=== PATIENT | male | born 1955 | race Caucasian/White ===

== ENCOUNTER 2022-02-25 06:37 | Day surgery (SDC) | payer MEDICARE ==
[2022-02-25] MEDS ORDERED: Lidocaine 1% PF 5 ML VIAL ONE (06:40)
[2022-02-25] MEDS ORDERED: Heparin 10,000 UNITS/ 10 ML VIAL ONE (06:40)
[2022-02-25] MEDS ORDERED: Verapamil 5 MG/2 ML VIAL ONE (06:40)
[2022-02-25] MEDS ORDERED: Nitroglycerin 100MG/250ML BOT 0 ML ONE ×2 (06:41)
[2022-02-25 07:14] LABS: #Basophils 0.1 thou/uL (0.0-0.2); #Eosinphils 0.2 thou/uL (0.0-0.7); #Lymphocytes 1.1 thou/uL (1.20-3.40); #Monocytes 0.7 thou/uL (0.11-0.59); #Neutrophils 6.6 thou/uL (1.40-6.50); %Basophils 0.6 % (0.0-1.0); %Lymphocytes 12.4 % (21.0-51.0); %Monocytes 7.7 % (0.0-10.0); %Neutrophils 77.3 % (42.0-75.0); Hemoglobin 16.4 g/dL (14.0-18.0); Mean Corpuscular Hemoglobin 31.3 pg (27.0-31.0); Mean Corpuscular Volume 92.1 fl (78.0-98.0); Mean Platelet Volume 7.5 fL (7.4-10.4); Platelet Count 205 10x3/uL (130-400); RBC Distribution Width 12.3 % (11.5-14.5); Red Blood Cell (RBC) Count 5.22 mill/uL (4.70-6.10); White Blood Cell (WBC) Count 8.5 10x3/uL (4.8-10.8)
[2022-02-25] MEDS ORDERED: Lidocaine 1% (PF) 30 ML VIAL ONE (07:16)
[2022-02-25] MEDS ORDERED: FENTANYL 50 MCG/ML 1 ML VIAL ONE (07:17)
[2022-02-25] MEDS ORDERED: Midazolam HCl 2 mg/2 ml Vial ONE ×2 (07:17→08:35)
[2022-02-25 07:47] LABS: Anion Gap 13 mmol/L (10-20); BUN (Urea Nitrogen) 13 mg/dL (8.4-25.7); Calc. Creatinine Clearance 0 mL/min (70-130); Calcium 9.7 mg/dL (7.8-10.44); Carbon Dioxide 24 mmol/L (23-31); Chloride 102 mmol/L (98-107); Estimated GFR 68; Glucose 236 mg/dL (80-115); Potassium 4.4 mmol/L (3.5-5.1); Sodium 135 mmol/L (136-145)
== END 2022-02-25 13:15 | disposition home or self-care (01) ==
LOC: SDC 06:37
PROVIDERS: ATTEND Internal Medicine Cardiovascular Disease
PROC: 4A023N7 Measurement of Cardiac Sampling and Pressure, Left Heart, Percutaneous Approach (ICD-10-PCS; principal; 2022-02-25)
PROC: B2111ZZ Fluoroscopy of Multiple Coronary Arteries using Low Osmolar Contrast (ICD-10-PCS; 2022-02-25)
DX: T82.855A Stenosis of coronary artery stent, initial encounter (principal); I25.10 Atherosclerotic heart disease of native coronary artery without angina pectoris; I25.82 Chronic total occlusion of coronary artery; K21.9 Gastro-esophageal reflux disease without esophagitis; I25.2 Old myocardial infarction; M10.9 Gout, unspecified; I10 Essential (primary) hypertension; E78.2 Mixed hyperlipidemia; E11.51 Type 2 diabetes mellitus with diabetic peripheral angiopathy without gangrene; M15.9 Polyosteoarthritis, unspecified; Z79.02 Long term (current) use of antithrombotics/antiplatelets; Z79.4 Long term (current) use of insulin; Z79.84 Long term (current) use of oral hypoglycemic drugs; Z79.899 Other long term (current) drug therapy; Y71.3 Surgical instruments, materials and cardiovascular devices (including sutures) associated with adverse incidents
CPT/HCPCS: 80048; 85025; 93460; 99152; 99153; C1769; J1644; J2001; J2250; J3010

== ENCOUNTER 2022-02-27 09:45 | Inpatient (IN) | payer MEDICARE ==
[2022-02-27 13:02] LABS: Hemoglobin 14.9 g/dL (13.5-17.5); Mean Corpuscular HGB CONC 34.7 g/dL (32.0-36.0); Mean Corpuscular Hemoglobin 30.9 pg (27.0-33.0); Mean Corpuscular Volume 89.2 fl (81.2-95.1); Mean Platelet Volume 10.3 fl (7.4-10.4); Platelet Count 208 10x3/uL (150-450); Red Blood Cell (RBC) Count 4.82 10x6/uL (4.32-5.72); White Blood Cell (WBC) Count 7.1 10x3/uL (3.5-10.5)
[2022-02-27 13:23] LABS: Anion Gap 16 mmol/L (10-20); BUN (Urea Nitrogen) 22 mg/dL (8.4-25.7); Calc. Creatinine Clearance 0 mL/min (70-130); Carbon Dioxide 23 mmol/L (23-31); Chloride 105 mmol/L (98-107); Estimated GFR 54; Glucose 269 mg/dL (80-115); Potassium 4.6 mmol/L (3.5-5.1); Sodium 139 mmol/L (136-145)
[2022-03-04 10:21] VITALS: BMI 33.5
[2022-03-05] MEDS ORDERED: Albumin 5% 500 ML ONE ×2 (06:14→12:45)
[2022-03-05] MEDS ORDERED: Dexamethasone 4 mg/ml Vial ONE (06:14)
[2022-03-05] MEDS ORDERED: Bupivacaine HCl 0.5%/Epinephrine 1:200,000/PF 30 ml Vial ONE (06:14)
[2022-03-05] MEDS ORDERED: Heparin 10,000 UNITS/1 ML VIAL 30,000 UNITS in Sodium Chloride 0.9% 1,000 ML FS SCH (06:45)
[2022-03-05] MEDS ORDERED: Sodium Chloride 0.9% 100 ML ONE (07:12)
[2022-03-05] MEDS ORDERED: CEFAZOLIN 2 GM VIAL ONE (07:12)
[2022-03-05] MEDS ORDERED: Calcium Chloride 1 GM/10 ML Abboject SYRINGE ONE (07:18)
[2022-03-05] MEDS ORDERED: Protamine Sulfate 250 MG/25 ML VIAL ONE ×2 (07:18→13:11)
[2022-03-05] MEDS ORDERED: Heparin 30,000 units/30 ml VIAL ONE ×2 (07:18→13:11)
[2022-03-05] MEDS ORDERED: Thrombin 5000 UNITS/5 ML VIAL ONE (07:18)
[2022-03-05] MEDS ORDERED: Phenylephrine 10 MG/ML VIAL ONE (07:18)
[2022-03-05] MEDS ORDERED: Vecuronium 10 MG VIAL ONE (07:18)
[2022-03-05] MEDS ORDERED: ePHEDrine 50 MG/ML VIAL ONE (07:18)
[2022-03-05] MEDS ORDERED: Vancomycin 1 GM VIAL ONE ×2 (07:18→13:11)
[2022-03-05] MEDS ORDERED: Papaverine 60 MG/2 ML VIAL ONE (07:18)
[2022-03-05] MEDS ORDERED: Rocuronium Bromide 10 MG/ML (10ML VIAL) ONE ×2 (07:18→13:11)
[2022-03-05] MEDS ORDERED: Lidocaine 2% PF 100 mg/5 ml Syringe ONE (07:18)
[2022-03-05] MEDS ORDERED: Sodium Bicarb 50 MEQ/50 ML Abboject 8.4% SYRINGE ONE (07:18)
[2022-03-05] MEDS ORDERED: Norepinephrine 4 MG/4 ML VIAL ONE (07:18)
[2022-03-05] MEDS ORDERED: Cardioplegic Soln 1,000 ML BAG ONE (07:18)
[2022-03-05] MEDS ORDERED: Heparin 5,000 UNITS/ML VIAL ONE (07:18)
[2022-03-05] MEDS ORDERED: PROPOFOL 200 MG/20 ML VIAL ONE (07:18)
[2022-03-05] MEDS ORDERED: Aminocaproic Acid 5 GM/20 ML VIAL ONE (07:18)
[2022-03-05] MEDS ORDERED: Magnesium Sulfate 1 GM/2 ML VIAL ONE (07:18)
[2022-03-05] MEDS ORDERED: Mannitol 12.5 GM/50 ML ONE (07:18)
[2022-03-05] MEDS ORDERED: fentaNYL PF 100 MCG/2 ML SYRINGE ONE (07:33)
[2022-03-05 07:47] LABS: SARS-CoV-2 NAA Rapid Test Not Detected (NotDetected)
[2022-03-05] MEDS ORDERED: PHENYLEPHRINE-NS 100 MCG/ML 10 ML SYRINGE ONE ×2 (08:10→09:15)
[2022-03-05] MEDS ORDERED: Insulin Regular 300 UNITS/3 ML VIAL ONE (08:10)
[2022-03-05] MEDS ORDERED: Midazolam HCl 2 mg/2 ml Vial ONE ×2 (10:14→13:16)
[2022-03-05] MEDS ORDERED: FENTANYL 50 MCG/ML 1 ML VIAL SLOW IVP PRN (10:46)
[2022-03-05] MEDS ORDERED: Post-Op Insulin Drip Protocol IVPB ONE (10:46)
[2022-03-05] MEDS ORDERED: NOREPINEPHRINE 8 MG/250 ML-D5W 250 ML IVPB PRN (10:46)
[2022-03-05] MEDS ORDERED: Bisacodyl 10 MG SUPP PR PRN (10:46)
[2022-03-05] MEDS ORDERED: Hetastarch 6% 500 ML 500 ML IVPB PRN (10:46)
[2022-03-05] MEDS ORDERED: Morphine 4 MG/ML VIAL SLOW IVP PRN (10:46)
[2022-03-05] MEDS ORDERED: Mag-Al 1200 mg/1200 mg/30 ML UDCUP PO PRN (10:46)
[2022-03-05] MEDS ORDERED: Acetaminophen 325 MG TAB PO PRN (10:46)
[2022-03-05] MEDS ORDERED: Lactated Ringer's 1,000 ML IV SCH (10:46)
[2022-03-05] MEDS ORDERED: Potassium Chloride 20 MEQ/100 ML PREMIX BAG IVPB PRN (10:46)
[2022-03-05] MEDS ORDERED: traMADol HCl 50 MG TAB PO PRN (10:46)
[2022-03-05] MEDS ORDERED: Bisacodyl 5 MG TAB PO PRN (10:46)
[2022-03-05] MEDS ORDERED: Guaifenesin DM 100-10/5 ML UDCUP PO PRN (10:46)
[2022-03-05] MEDS ORDERED: Rocuronium Bromide 50 MG/5 ML VIAL ONE (11:01)
[2022-03-05 11:16] LABS: Base Excess (BEa) -6.4 mEq/L (-2.0 to +3.0); Calcium, Ionized (arterial) 1.13 mmol/L (1.12-1.30); Carboxyhemoglobin (COHb) 1.3 gm% (0.0-3.0); Hemoglobin (Hb) 13.5 g/dL (14.0-18.0); O2 Tension (PaO2), arterial 109.9 mmHg (> 80.0); Potassium - ABG Lab 4.53 mmol/L (3.70-5.30); Puncture Site Arterial Line; pH, Arterial 7.29 (7.35-7.45)
[2022-03-05] MEDS ORDERED: Insulin Regular 300 UNITS/3 ML VIAL SC PRN (11:30)
[2022-03-05] MEDS ORDERED: Dextrose 5% in Water 1,000 ML IV PRN (11:30)
[2022-03-05] MEDS ORDERED: Dextrose 50% Abboject 50 ML SYRINGE SLOW IVP PRN (11:30)
[2022-03-05 11:32] LABS: #Eosinphils 0.2 thou/uL (0.0-0.7); #Lymphocytes 1.3 thou/uL (1.20-3.40); #Monocytes 1.5 thou/uL (0.11-0.59); #Neutrophils 13.6 thou/uL (1.40-6.50); %Basophils 0.1 % (0.0-1.0); %Eosinophils 0.9 % (0.0-10.0); %Lymphocytes 7.8 % (21.0-51.0); %Monocytes 9.3 % (0.0-10.0); %Neutrophils 81.9 % (42.0-75.0); Hemoglobin 13.2 g/dL (14.0-18.0); Mean Corpuscular Hemoglobin 31.7 pg (27.0-31.0); Mean Corpuscular Volume 93.2 fl (78.0-98.0); Mean Platelet Volume 7.7 fL (7.4-10.4); Platelet Count 162 10x3/uL (130-400); RBC Distribution Width 12.5 % (11.5-14.5); Red Blood Cell (RBC) Count 4.17 mill/uL (4.70-6.10); White Blood Cell (WBC) Count 16.6 10x3/uL (4.8-10.8)
[2022-03-05 11:47] LABS: INR-International Normal Ratio 1.2; PTT 30.3 sec (22.9-36.1)
[2022-03-05] MEDS: niCARdipine 25 MG in Sodium Chloride 0.9% 250 ML 250 ML IVPB PRN ×2 (11:48→20:58)
[2022-03-05] MEDS: HUMULIN R 100 UNITS in Sodium Chloride 0.9% 100 ML IVPB SCH ×2 (11:49→23:12)
[2022-03-05 12:19] LABS: Anion Gap 13 mmol/L (10-20); BUN (Urea Nitrogen) 17 mg/dL (8.4-25.7); Calc. Creatinine Clearance 120 mL/min (70-130); Calcium 7.7 mg/dL (7.8-10.44); Carbon Dioxide 19 mmol/L (23-31); Chloride 113 mmol/L (98-107); Estimated GFR 76; Glucose 179 mg/dL (80-115); Potassium 4.5 mmol/L (3.5-5.1); Sodium 140 mmol/L (136-145)
[2022-03-05] MEDS ORDERED: Propofol 1,000 MG/100 ML VIAL IV ONE (12:43)
[2022-03-05] MEDS: FENTANYL 50 MCG/ML 1 ML VIAL SLOW IVP PRN ×4 (12:45→20:16)
[2022-03-05 12:47] LABS: Actual Bicarbonate (HCO3a) 20.2 mEq/L (22-28); Base Excess (BEa) -4.9 mEq/L (-2.0 to +3.0); CO2 Tension 37.6 mmHg (35.0-45.0); Calcium, Ionized (arterial) 1.11 mmol/L (1.12-1.30); Carboxyhemoglobin (COHb) 1.3 gm% (0.0-3.0); Hemoglobin (Hb) 13.5 g/dL (14.0-18.0); O2 Tension (PaO2), arterial 107.8 mmHg (> 80.0); pH, Arterial 7.35 (7.35-7.45)
[2022-03-05 12:52] LABS: Puncture Site Arterial Line
[2022-03-05] MEDS: Ketorolac Tromethamine 30 MG/ML VIAL IVP SCH ×3 (15:00→23:11)
[2022-03-05 16:00] LABS: #Eosinphils 0.1 thou/uL (0.0-0.7); #Lymphocytes 0.6 thou/uL (1.20-3.40); #Monocytes 1.1 thou/uL (0.11-0.59); #Neutrophils 13.9 thou/uL (1.40-6.50); %Basophils 0.1 % (0.0-1.0); %Eosinophils 0.5 % (0.0-10.0); %Monocytes 6.9 % (0.0-10.0); %Neutrophils 88.5 % (42.0-75.0); Hemoglobin 12.2 g/dL (14.0-18.0); Mean Corpuscular HGB CONC 33.7 g/dL (32.0-36.0); Mean Corpuscular Hemoglobin 31.4 pg (27.0-31.0); Mean Corpuscular Volume 93.3 fl (78.0-98.0); Mean Platelet Volume 7.3 fL (7.4-10.4); Platelet Count 181 10x3/uL (130-400); RBC Distribution Width 12.4 % (11.5-14.5); Red Blood Cell (RBC) Count 3.87 mill/uL (4.70-6.10); White Blood Cell (WBC) Count 15.8 10x3/uL (4.8-10.8)
[2022-03-05 16:16] LABS: Anion Gap 11 mmol/L (10-20); BUN (Urea Nitrogen) 16 mg/dL (8.4-25.7); Calc. Creatinine Clearance 145 mL/min (70-130); Calcium 7.6 mg/dL (7.8-10.44); Carbon Dioxide 19 mmol/L (23-31); Chloride 116 mmol/L (98-107); Estimated GFR 95; Glucose 172 mg/dL (80-115); Sodium 142 mmol/L (136-145)
[2022-03-05] MEDS: CEFAZOLIN 3 GM, Admixture Fee 1 EACH in Sodium Chloride 0.9% 100 ML IVPB SCH ×2 (16:26→23:10)
[2022-03-05 16:38] LABS: Base Excess (BEa) -7.6 mEq/L (-2.0 to +3.0); CO2 Tension 32.1 mmHg (35.0-45.0); Carboxyhemoglobin (COHb) 1.3 gm% (0.0-3.0); Hemoglobin (Hb) 12.6 g/dL (14.0-18.0); O2 Tension (PaO2), arterial 91.8 mmHg (> 80.0); Potassium - ABG Lab 3.97 mmol/L (3.70-5.30); pH, Arterial 7.34 (7.35-7.45)
[2022-03-05 16:39] LABS: ALV-art Gradient 153.275 mmHg (0-20); Puncture Site Arterial Line
[2022-03-05] MEDS ORDERED: Propofol BOLUS 1,000 MG/100 ML VIAL IV PRN (16:45)
[2022-03-05] MEDS ORDERED: Propofol 1,000 MG/100 ML VIAL IV PRN (16:45)
[2022-03-05] MEDS ORDERED: Sodium Bicarb 50 MEQ/50 ML VIAL ONE (17:18)
[2022-03-05] MEDS ORDERED: Sodium Bicarb 50 MEQ/50 ML VIAL IVP SCH (17:30)
[2022-03-05 17:45] LABS: Potassium 3.8 mmol/L (3.5-5.1)
[2022-03-05] MEDS: hydrALAZINE 20 MG/ML VIAL SLOW IVP PRN (18:01)
[2022-03-05] MEDS: Ondansetron PF 4 MG/2 ML Vial IVP PRN ×2 (18:01→23:23)
[2022-03-05] MEDS ORDERED: Famotidine/PF 20 mg/2ml Vial SLOW IVP SCH (21:00)
[2022-03-05] MEDS ORDERED: Atorvastatin Calcium 20 MG TAB PO SCH (21:00)
[2022-03-05] MEDS ORDERED: Simethicone Chewable 80 MG TAB PO SCH (23:45)
[2022-03-06] MEDS: niCARdipine 25 MG in Sodium Chloride 0.9% 250 ML 250 ML IVPB PRN ×3 (00:03→04:48)
[2022-03-06] MEDS: traMADol HCl 50 MG TAB PO PRN ×3 (02:01→17:09)
[2022-03-06] MEDS: FENTANYL 50 MCG/ML 1 ML VIAL SLOW IVP PRN ×3 (03:43→20:24)
[2022-03-06] MEDS: hydrALAZINE 20 MG/ML VIAL SLOW IVP PRN ×2 (04:48→18:04)
[2022-03-06 04:52] LABS: Anion Gap 14 mmol/L (10-20); BUN (Urea Nitrogen) 15 mg/dL (8.4-25.7); Calc. Creatinine Clearance 134 mL/min (70-130); Calcium 7.8 mg/dL (7.8-10.44); Carbon Dioxide 20 mmol/L (23-31); Chloride 114 mmol/L (98-107); Estimated GFR 87; Glucose 132 mg/dL (80-115); Potassium 3.9 mmol/L (3.5-5.1); Sodium 144 mmol/L (136-145)
[2022-03-06 05:10] LABS: #Lymphocytes 0.6 thou/uL (1.20-3.40); #Monocytes 1.5 thou/uL (0.11-0.59); #Neutrophils 10.6 thou/uL (1.40-6.50); %Eosinophils 0.1 % (0.0-10.0); %Lymphocytes 4.6 % (21.0-51.0); %Monocytes 11.8 % (0.0-10.0); %Neutrophils 83.5 % (42.0-75.0); Hemoglobin 11.3 g/dL (14.0-18.0); Mean Corpuscular HGB CONC 33.5 g/dL (32.0-36.0); Mean Corpuscular Hemoglobin 31.4 pg (27.0-31.0); Mean Corpuscular Volume 93.7 fl (78.0-98.0); Mean Platelet Volume 8.1 fL (7.4-10.4); Platelet Count 170 10x3/uL (130-400); RBC Distribution Width 12.8 % (11.5-14.5); Red Blood Cell (RBC) Count 3.61 mill/uL (4.70-6.10); White Blood Cell (WBC) Count 12.7 10x3/uL (4.8-10.8)
[2022-03-06] MEDS: Ondansetron PF 4 MG/2 ML Vial IVP PRN (05:24)
[2022-03-06] MEDS: Ketorolac Tromethamine 30 MG/ML VIAL IVP SCH ×4 (05:24→23:50)
[2022-03-06] MEDS ORDERED: Dextrose 50% Abboject 50 ML SYRINGE SLOW IVP PRN (06:18)
[2022-03-06] MEDS ORDERED: Dextrose 5% in Water 1,000 ML IV PRN (06:18)
[2022-03-06] MEDS ORDERED: Furosemide 40 MG TAB PO SCH (07:30)
[2022-03-06] MEDS ORDERED: Potassium Chloride 10 MEQ TAB PO SCH (08:00)
[2022-03-06] MEDS: Magnesium 2 GM/50 ML(in water) 2 GM in Premix Bag 1 BAG IVPB SCH (08:44)
[2022-03-06] MEDS: Empagliflozin 10 MG TAB PO SCH (08:45)
[2022-03-06] MEDS: Colchicine 0.6 MG TAB PO SCH ×2 (08:45→20:26)
[2022-03-06] MEDS: Aspirin 325 MG TAB PO SCH (08:45)
[2022-03-06] MEDS: Allopurinol 300 MG TAB PO SCH (08:45)
[2022-03-06] MEDS: Metoprolol Tartrate 25 MG TAB PO SCH ×2 (08:45→20:26)
[2022-03-06] MEDS: Fenofibrate Nanocrystallized 145 MG TAB PO SCH (08:45)
[2022-03-06] MEDS: CEFAZOLIN 3 GM, Admixture Fee 1 EACH in Sodium Chloride 0.9% 100 ML IVPB SCH (09:53)
[2022-03-06] MEDS ORDERED: Insulin Glargine 30 UNITS/0.3 ML VIAL SC PRN (11:16)
[2022-03-06] MEDS: HumaLOG 300 UNITS/3 ML VIAL SC PRN ×3 (11:35→20:36)
[2022-03-06] MEDS: Atorvastatin Calcium 20 MG TAB PO SCH (20:26)
[2022-03-07] MEDS: Ketorolac Tromethamine 30 MG/ML VIAL IVP SCH ×4 (05:55→23:38)
[2022-03-07] MEDS: HumaLOG 300 UNITS/3 ML VIAL SC PRN ×2 (05:58→16:15)
[2022-03-07] MEDS ORDERED: Mag-Al 1200 mg/1200 mg/30 ML UDCUP PO PRN (07:12)
[2022-03-07] MEDS ORDERED: diphenhydrAMINE 25 MG CAP PO PRN (07:12)
[2022-03-07] MEDS ORDERED: Bisacodyl 10 MG SUPP PR PRN (07:12)
[2022-03-07] MEDS ORDERED: Nitroglycerin 0.4 MG TAB (25 Tab Bottle) SL PRN (07:12)
[2022-03-07] MEDS ORDERED: Zolpidem Tartrate 5 MG TAB PO PRN (07:12)
[2022-03-07] MEDS ORDERED: Milk Of Magnesia 30 ML UDCUP PO PRN (07:12)
[2022-03-07] MEDS ORDERED: Guaifenesin DM 100-10/5 ML UDCUP PO PRN (07:12)
[2022-03-07] MEDS ORDERED: Mineral Oil ENEMA PR PRN (07:12)
[2022-03-07] MEDS: FENTANYL 50 MCG/ML 1 ML VIAL SLOW IVP PRN (08:18)
[2022-03-07] MEDS: Metoprolol Tartrate 25 MG TAB PO SCH ×2 (08:30→21:25)
[2022-03-07] MEDS: Magnesium 2 GM/50 ML(in water) 2 GM in Premix Bag 1 BAG IVPB SCH (08:32)
[2022-03-07] MEDS: Potassium Chloride 10 MEQ TAB PO SCH ×2 (08:33→16:16)
[2022-03-07] MEDS: Furosemide 40 MG TAB PO SCH ×2 (08:34→15:19)
[2022-03-07] MEDS: Aspirin 325 MG TAB PO SCH (08:34)
[2022-03-07] MEDS: Colchicine 0.6 MG TAB PO SCH ×2 (08:54→21:25)
[2022-03-07] MEDS: Aspirin 325 mg Enteric Coated Tablet PO SCH (08:55)
[2022-03-07] MEDS ORDERED: Metoprolol Tartrate 5 MG/5 ML VIAL ONE (09:08)
[2022-03-07 09:22] LABS: #Lymphocytes 1.4 thou/uL (1.20-3.40); #Neutrophils 10.3 thou/uL (1.40-6.50); %Basophils 0.2 % (0.0-1.0); %Eosinophils 0.3 % (0.0-10.0); %Monocytes 14.6 % (0.0-10.0); %Neutrophils 74.9 % (42.0-75.0); Hemoglobin 10.8 g/dL (14.0-18.0); Mean Corpuscular HGB CONC 33.1 g/dL (32.0-36.0); Mean Corpuscular Volume 93.6 fl (78.0-98.0); Mean Platelet Volume 7.7 fL (7.4-10.4); Platelet Count 169 10x3/uL (130-400); RBC Distribution Width 12.7 % (11.5-14.5); Red Blood Cell (RBC) Count 3.49 mill/uL (4.70-6.10); White Blood Cell (WBC) Count 13.8 10x3/uL (4.8-10.8)
[2022-03-07] MEDS ORDERED: Digoxin 0.5 MG/2 ML AMP ONE (09:28)
[2022-03-07] MEDS ORDERED: Amiodarone 150 MG/3 ML VIAL IVP SCH (09:45)
[2022-03-07] MEDS ORDERED: Metoprolol Tartrate 5 MG/5 ML VIAL IVP SCH (09:45)
[2022-03-07] MEDS ORDERED: Digoxin 0.5 MG/2 ML AMP SLOW IVP SCH (09:45)
[2022-03-07 09:47] LABS: ALT (SGPT) 15 U/L (8-55); AST (SGOT) 20 U/L (5-34); Albumin 3.7 g/dL (3.4-4.8); Alkaline Phosphatase 31 U/L (40-110); Anion Gap 15 mmol/L (10-20); BUN (Urea Nitrogen) 24 mg/dL (8.4-25.7); Bilirubin, Total 1.3 mg/dL (0.2-1.2); Calc. Creatinine Clearance 122 mL/min (70-130); Calcium 8.6 mg/dL (7.8-10.44); Carbon Dioxide 21 mmol/L (23-31); Chloride 104 mmol/L (98-107); Estimated GFR 75; Globulin 2.4 g/dL (2.4-3.5); Glucose 222 mg/dL (80-115); Magnesium 2.7 mg/dL (1.6-2.6); Protein, Total 6.1 g/dL (5.8-8.1); Sodium 136 mmol/L (136-145)
[2022-03-07] MEDS: Allopurinol 300 MG TAB PO SCH (10:03)
[2022-03-07] MEDS: Fenofibrate Nanocrystallized 145 MG TAB PO SCH (10:03)
[2022-03-07] MEDS ORDERED: Amiodarone 450 MG, Admixture Fee 1 EACH in Dextrose 5% in Water 250 ML IVPB SCH (10:15)
[2022-03-07] MEDS: Empagliflozin 25 MG TAB PO SCH (10:58)
[2022-03-07] MEDS: hydrALAZINE 20 MG/ML VIAL SLOW IVP PRN (16:16)
[2022-03-07] MEDS: Bisacodyl 5 MG TAB PO PRN (16:30)
[2022-03-07] MEDS: Ondansetron PF 4 MG/2 ML Vial IVP PRN (18:09)
[2022-03-07] MEDS: traMADol HCl 50 MG TAB PO PRN (21:24)
[2022-03-07] MEDS: Amlodipine 5 MG TAB PO SCH (21:25)
[2022-03-07] MEDS: Atorvastatin Calcium 20 MG TAB PO SCH (21:25)
[2022-03-07] MEDS: Insulin Regular 300 UNITS/3 ML VIAL SC PRN (22:00)
[2022-03-08] MEDS: Insulin Regular 300 UNITS/3 ML VIAL SC PRN ×3 (01:18→12:25)
[2022-03-08] MEDS: traMADol HCl 50 MG TAB PO PRN ×3 (01:19→23:14)
[2022-03-08] MEDS: hydrALAZINE 20 MG/ML VIAL SLOW IVP PRN (04:06)
[2022-03-08] MEDS: Ketorolac Tromethamine 30 MG/ML VIAL IVP SCH ×2 (05:24→12:18)
[2022-03-08] MEDS: Furosemide 40 MG TAB PO SCH ×2 (10:39→15:16)
[2022-03-08] MEDS: Metoprolol Tartrate 25 MG TAB PO SCH ×2 (10:39→20:12)
[2022-03-08] MEDS: Fenofibrate Nanocrystallized 145 MG TAB PO SCH (10:39)
[2022-03-08] MEDS: Colchicine 0.6 MG TAB PO SCH ×2 (10:40→20:12)
[2022-03-08] MEDS: Potassium Chloride 10 MEQ TAB PO SCH ×2 (10:40→17:32)
[2022-03-08] MEDS: Aspirin 325 mg Enteric Coated Tablet PO SCH (10:40)
[2022-03-08] MEDS: Empagliflozin 10 MG TAB PO SCH (10:40)
[2022-03-08] MEDS: Allopurinol 300 MG TAB PO SCH (10:40)
[2022-03-08] MEDS: Aspirin 325 MG TAB PO SCH (10:41)
[2022-03-08] MEDS ORDERED: Amiodarone 200 MG TAB PO SCH ×2 (14:45→21:00)
[2022-03-08] MEDS ORDERED: Digoxin 0.5 MG/2 ML AMP SLOW IVP PRN (19:36)
[2022-03-08] MEDS ORDERED: Amiodarone 150 MG, Admixture Fee 1 EACH in Dextrose 5% in Water 100 ML IVPB SCH (19:45)
[2022-03-08] MEDS ORDERED: FLU VACC QS2022-23(65YR UP)/PF 240 MCG/0.7 ML SYRINGE IM ONE (20:00)
[2022-03-08] MEDS: Amiodarone 450 MG, Admixture Fee 1 EACH in Dextrose 5% in Water 250 ML IVPB SCH (20:06)
[2022-03-08] MEDS: Amlodipine 5 MG TAB PO SCH (20:12)
[2022-03-08] MEDS: Atorvastatin Calcium 20 MG TAB PO SCH (20:14)
[2022-03-08] MEDS ORDERED: Diltiazem 125 MG in Sodium Chloride 0.9% 100 ML IVPB SCH (21:45)
[2022-03-08] MEDS ORDERED: Digoxin 0.5 MG/2 ML AMP SLOW IVP SCH (21:45)
[2022-03-09] MEDS ORDERED: Digoxin 0.5 MG/2 ML AMP SLOW IVP SCH (01:00)
[2022-03-09 04:42] LABS: Digoxin 1.75 ng/mL (0.8-2.0)
[2022-03-09 04:44] LABS: Anion Gap 16 mmol/L (10-20); BUN (Urea Nitrogen) 20 mg/dL (8.4-25.7); Calc. Creatinine Clearance 137 mL/min (70-130); Calcium 8.9 mg/dL (7.8-10.44); Carbon Dioxide 24 mmol/L (23-31); Chloride 101 mmol/L (98-107); Estimated GFR 90; Glucose 157 mg/dL (80-115); Sodium 137 mmol/L (136-145)
[2022-03-09] MEDS: Insulin Regular 300 UNITS/3 ML VIAL SC PRN (06:07)
[2022-03-09] MEDS: Amiodarone 450 MG, Admixture Fee 1 EACH in Dextrose 5% in Water 250 ML IVPB SCH ×2 (06:37→21:12)
[2022-03-09] MEDS: Aspirin 325 mg Enteric Coated Tablet PO SCH (09:41)
[2022-03-09] MEDS: Fenofibrate Nanocrystallized 145 MG TAB PO SCH (09:41)
[2022-03-09] MEDS: Furosemide 40 MG TAB PO SCH ×2 (09:41→14:47)
[2022-03-09] MEDS: Metoprolol Tartrate 25 MG TAB PO SCH ×2 (09:42→21:08)
[2022-03-09] MEDS: Allopurinol 300 MG TAB PO SCH (09:42)
[2022-03-09] MEDS: Colchicine 0.6 MG TAB PO SCH ×2 (09:42→21:08)
[2022-03-09] MEDS: Empagliflozin 25 MG TAB PO SCH (09:43)
[2022-03-09] MEDS: Potassium Chloride 10 MEQ TAB PO SCH ×2 (09:43→17:46)
[2022-03-09] MEDS: HumaLOG 300 UNITS/3 ML VIAL SC PRN (17:46)
[2022-03-09] MEDS: traMADol HCl 50 MG TAB PO PRN (19:20)
[2022-03-09] MEDS: Amlodipine 5 MG TAB PO SCH (21:08)
[2022-03-09] MEDS: Atorvastatin Calcium 20 MG TAB PO SCH (21:08)
[2022-03-10] MEDS: Diltiazem 125 MG in Sodium Chloride 0.9% 100 ML IVPB SCH (01:02)
[2022-03-10] MEDS: HumaLOG 300 UNITS/3 ML VIAL SC PRN ×3 (05:40→22:06)
[2022-03-10] MEDS: Digoxin 0.125 MG TAB PO SCH (09:26)
[2022-03-10] MEDS: Allopurinol 300 MG TAB PO SCH (09:26)
[2022-03-10] MEDS: Furosemide 40 MG TAB PO SCH ×2 (09:27→15:41)
[2022-03-10] MEDS: Potassium Chloride 10 MEQ TAB PO SCH ×2 (09:27→18:34)
[2022-03-10] MEDS: Empagliflozin 10 MG TAB PO SCH (09:27)
[2022-03-10] MEDS: Metoprolol Tartrate 25 MG TAB PO SCH ×2 (09:27→21:59)
[2022-03-10] MEDS: Fenofibrate Nanocrystallized 145 MG TAB PO SCH (09:28)
[2022-03-10] MEDS: Aspirin 325 mg Enteric Coated Tablet PO SCH (09:28)
[2022-03-10] MEDS: Colchicine 0.6 MG TAB PO SCH ×2 (09:28→21:58)
[2022-03-10] MEDS: Atorvastatin Calcium 20 MG TAB PO SCH (21:57)
[2022-03-10] MEDS: Amlodipine 5 MG TAB PO SCH (21:59)
[2022-03-11] MEDS: Amiodarone 450 MG, Admixture Fee 1 EACH in Dextrose 5% in Water 250 ML IVPB SCH ×2 (01:38→19:15)
[2022-03-11] MEDS: Diltiazem 125 MG in Sodium Chloride 0.9% 100 ML IVPB SCH ×2 (01:38→15:23)
[2022-03-11 05:33] LABS: Digoxin 0.64 ng/mL (0.8-2.0)
[2022-03-11] MEDS: Allopurinol 300 MG TAB PO SCH (10:20)
[2022-03-11] MEDS: Empagliflozin 25 MG TAB PO SCH (10:20)
[2022-03-11] MEDS: Metoprolol Tartrate 25 MG TAB PO SCH ×2 (10:21→20:50)
[2022-03-11] MEDS: Furosemide 40 MG TAB PO SCH ×2 (10:21→13:38)
[2022-03-11] MEDS: Potassium Chloride 10 MEQ TAB PO SCH ×2 (10:21→17:13)
[2022-03-11] MEDS: Aspirin 325 mg Enteric Coated Tablet PO SCH (10:21)
[2022-03-11] MEDS: Fenofibrate Nanocrystallized 145 MG TAB PO SCH (10:22)
[2022-03-11] MEDS: Digoxin 0.125 MG TAB PO SCH (10:22)
[2022-03-11] MEDS: Colchicine 0.6 MG TAB PO SCH ×2 (10:22→20:50)
[2022-03-11] MEDS: HumaLOG 300 UNITS/3 ML VIAL SC PRN ×2 (13:39→17:24)
[2022-03-11] MEDS: Bisacodyl 5 MG TAB PO PRN (13:43)
[2022-03-11] MEDS: Amlodipine 5 MG TAB PO SCH (20:49)
[2022-03-11] MEDS: Enoxaparin Sodium 40 MG/0.4 ML SYRINGE SC SCH (20:50)
[2022-03-11] MEDS: Atorvastatin Calcium 20 MG TAB PO SCH (20:50)
[2022-03-12] MEDS: Metoprolol Tartrate 25 MG TAB PO SCH ×2 (08:31→21:30)
[2022-03-12] MEDS: Amiodarone 200 MG TAB PO SCH ×3 (08:32→21:28)
[2022-03-12] MEDS: Furosemide 40 MG TAB PO SCH ×2 (08:33→14:06)
[2022-03-12] MEDS: Fenofibrate Nanocrystallized 145 MG TAB PO SCH (08:33)
[2022-03-12] MEDS: Potassium Chloride 10 MEQ TAB PO SCH ×2 (08:33→17:55)
[2022-03-12] MEDS: Empagliflozin 10 MG TAB PO SCH (08:34)
[2022-03-12] MEDS: Aspirin 325 mg Enteric Coated Tablet PO SCH (08:34)
[2022-03-12] MEDS: Digoxin 0.125 MG TAB PO SCH (08:34)
[2022-03-12] MEDS: Allopurinol 300 MG TAB PO SCH (08:35)
[2022-03-12] MEDS: Colchicine 0.3 MG TAB PO SCH ×2 (09:31→21:30)
[2022-03-12] MEDS: Bisacodyl 5 MG TAB PO PRN (09:31)
[2022-03-12] MEDS: HumaLOG 300 UNITS/3 ML VIAL SC PRN ×2 (14:10→17:56)
[2022-03-12] MEDS: Amlodipine 5 MG TAB PO SCH (21:29)
[2022-03-12] MEDS: Atorvastatin Calcium 20 MG TAB PO SCH (21:29)
[2022-03-12] MEDS: Enoxaparin Sodium 40 MG/0.4 ML SYRINGE SC SCH (21:31)
[2022-03-13 05:16] LABS: Anion Gap 16 mmol/L (10-20); BUN (Urea Nitrogen) 18 mg/dL (8.4-25.7); Calc. Creatinine Clearance 109 mL/min (70-130); Calcium 8.9 mg/dL (7.8-10.44); Carbon Dioxide 25 mmol/L (23-31); Chloride 101 mmol/L (98-107); Estimated GFR 65; Glucose 170 mg/dL (80-115); Potassium 3.6 mmol/L (3.5-5.1); Sodium 138 mmol/L (136-145)
[2022-03-13] MEDS: Fenofibrate Nanocrystallized 145 MG TAB PO SCH (09:19)
[2022-03-13] MEDS: Amiodarone 200 MG TAB PO SCH (09:20)
[2022-03-13] MEDS: Metoprolol Tartrate 25 MG TAB PO SCH (09:20)
[2022-03-13] MEDS: Potassium Chloride 10 MEQ TAB PO SCH (09:20)
[2022-03-13] MEDS: Colchicine 0.3 MG TAB PO SCH (09:21)
[2022-03-13] MEDS: Digoxin 0.125 MG TAB PO SCH (09:21)
[2022-03-13] MEDS: Aspirin 325 mg Enteric Coated Tablet PO SCH (09:21)
[2022-03-13] MEDS: Allopurinol 300 MG TAB PO SCH (09:21)
[2022-03-13] MEDS: Furosemide 40 MG TAB PO SCH (09:21)
[2022-03-13 11:57] VITALS: BP 122/69; TEMP 97.9
[2022-03-13] MEDS: HumaLOG 300 UNITS/3 ML VIAL SC PRN (13:06)
[2022-03-13] MEDS: Empagliflozin 25 MG TAB PO SCH (13:08)
[2022-03-13 13:53] LABS: Actual Bicarbonate (HCO3a) 23.9 mEq/L (22-28); Analyzer IN Cardio OR; Base Excess (BEa) -2.1 mEq/L (-2.0 to +3.0); CO2 Tension 46.3 mmHg (35.0-45.0); Calcium, Ionized (arterial) 1.07 mmol/L (1.12-1.30); Carboxyhemoglobin (COHb) 0.9 gm% (0.0-3.0); Hemoglobin (Hb) 11.4 g/dL (14.0-18.0); pH, Arterial 7.33 (7.35-7.45)
[2022-03-13 13:53] LABS: Actual Bicarbonate (HCO3a) 21.9 mEq/L (22-28); Analyzer IN Cardio OR; Base Excess (BEa) -4.1 mEq/L (-2.0 to +3.0); CO2 Tension 43.4 mmHg (35.0-45.0); Calcium, Ionized (arterial) 1.09 mmol/L (1.12-1.30); Carboxyhemoglobin (COHb) 1.3 gm% (0.0-3.0); Hemoglobin (Hb) 13.2 g/dL (14.0-18.0); O2 Tension (PaO2), arterial 314.1 mmHg (> 80.0); Potassium - ABG Lab 4.51 mmol/L (3.70-5.30); pH, Arterial 7.32 (7.35-7.45)
[2022-03-13 13:53] LABS: Actual Bicarbonate (HCO3a) 21.5 mEq/L (22-28); Analyzer IN Cardio OR; Base Excess (BEa) -4.3 mEq/L (-2.0 to +3.0); CO2 Tension 42.1 mmHg (35.0-45.0); Calcium, Ionized (arterial) 1.16 mmol/L (1.12-1.30); Carboxyhemoglobin (COHb) 1.9 gm% (0.0-3.0); Hemoglobin (Hb) 14.5 g/dL (14.0-18.0); O2 Tension (PaO2), arterial 229.8 mmHg (> 80.0); Potassium - ABG Lab 4.25 mmol/L (3.70-5.30); pH, Arterial 7.33 (7.35-7.45)
[2022-03-13 13:54] LABS: Actual Bicarbonate (HCO3a) 20.2 mEq/L (22-28); Analyzer IN Cardio OR; Base Excess (BEa) -6.1 mEq/L (-2.0 to +3.0); Calcium, Ionized (arterial) 1.07 mmol/L (1.12-1.30); Carboxyhemoglobin (COHb) 1.1 gm% (0.0-3.0); Hemoglobin (Hb) 12.1 g/dL (14.0-18.0); O2 Tension (PaO2), arterial 318.6 mmHg (> 80.0); Potassium - ABG Lab 4.34 mmol/L (3.70-5.30); pH, Arterial 7.29 (7.35-7.45)
[2022-03-13 13:54] LABS: Actual Bicarbonate (HCO3a) 21.2 mEq/L (22-28); Analyzer IN Cardio OR; Base Excess (BEa) -3.4 mEq/L (-2.0 to +3.0); CO2 Tension 36.9 mmHg (35.0-45.0); Calcium, Ionized (arterial) 1.19 mmol/L (1.12-1.30); Carboxyhemoglobin (COHb) 1.1 gm% (0.0-3.0); Hemoglobin (Hb) 11.6 g/dL (14.0-18.0); O2 Tension (PaO2), arterial 262.9 mmHg (> 80.0); Potassium - ABG Lab 5.76 mmol/L (3.70-5.30); pH, Arterial 7.38 (7.35-7.45)
[2022-03-13 13:54] LABS: Actual Bicarbonate (HCO3a) 21.6 mEq/L (22-28); Analyzer IN Cardio OR; Base Excess (BEa) -3.6 mEq/L (-2.0 to +3.0); Carboxyhemoglobin (COHb) 1.1 gm% (0.0-3.0); Hemoglobin (Hb) 12.2 g/dL (14.0-18.0); O2 Tension (PaO2), arterial 218.7 mmHg (> 80.0); Potassium - ABG Lab 4.27 mmol/L (3.70-5.30); pH, Arterial 7.35 (7.35-7.45)
[2022-03-13 13:55] LABS: Puncture Site Arterial Line
[2022-03-13 13:55] LABS: Actual Bicarbonate (HCO3a) 20.4 mEq/L (22-28); Analyzer IN Cardio OR; Base Excess (BEa) -5.7 mEq/L (-2.0 to +3.0); CO2 Tension 42.3 mmHg (35.0-45.0); Calcium, Ionized (arterial) 1.08 mmol/L (1.12-1.30); Carboxyhemoglobin (COHb) 1.1 gm% (0.0-3.0); Hemoglobin (Hb) 12.2 g/dL (14.0-18.0); O2 Tension (PaO2), arterial 234.2 mmHg (> 80.0); Potassium - ABG Lab 4.19 mmol/L (3.70-5.30)
[2022-03-13 13:56] LABS: Puncture Site Arterial Line
[2022-03-13 14:07] LABS: Puncture Site Arterial Line
[2022-03-13 14:07] LABS: Puncture Site Arterial Line
[2022-03-13 14:08] LABS: Puncture Site Arterial Line
[2022-03-13 14:08] LABS: Puncture Site Arterial Line
[2022-03-13 14:09] LABS: Puncture Site Arterial Line
== END 2022-03-13 13:30 | disposition home or self-care (01) | DRG 236 ==
LOC: SURG A 03-05 05:40 → CCU 03-05 10:58 → 2NO 03-07 16:56
PROVIDERS: ADMIT Thoracic Surgery (Cardiothoracic Vascular Surgery); ATTEND Thoracic Surgery (Cardiothoracic Vascular Surgery)
PROC: 021209W Bypass Coronary Artery, Three Arteries from Aorta with Autologous Venous Tissue, Open Approach (ICD-10-PCS; principal; 2022-03-05)
PROC: 06BP4ZZ Excision of Right Saphenous Vein, Percutaneous Endoscopic Approach (ICD-10-PCS; 2022-03-05)
PROC: 0W380ZZ Control Bleeding in Chest Wall, Open Approach (ICD-10-PCS; 2022-03-05)
PROC: 02L70CK Occlusion of Left Atrial Appendage with Extraluminal Device, Open Approach (ICD-10-PCS; 2022-03-05)
PROC: 5A1221Z Performance of Cardiac Output, Continuous (ICD-10-PCS; 2022-03-05)
DX: I25.118 Atherosclerotic heart disease of native coronary artery with other forms of angina pectoris (principal); I97.611 Postprocedural hemorrhage of a circulatory system organ or structure following cardiac bypass; I97.190 Other postprocedural cardiac functional disturbances following cardiac surgery; J98.11 Atelectasis; I10 Essential (primary) hypertension; E78.5 Hyperlipidemia, unspecified; Y83.8 Other surgical procedures as the cause of abnormal reaction of the patient, or of later complication, without mention of misadventure at the time of the procedure; M19.90 Unspecified osteoarthritis, unspecified site; K21.9 Gastro-esophageal reflux disease without esophagitis; E11.51 Type 2 diabetes mellitus with diabetic peripheral angiopathy without gangrene; E78.1 Pure hyperglyceridemia; M10.9 Gout, unspecified; I48.91 Unspecified atrial fibrillation; Z79.899 Other long term (current) drug therapy; Z79.82 Long term (current) use of aspirin; Z79.4 Long term (current) use of insulin; Z87.442 Personal history of urinary calculi; Z79.02 Long term (current) use of antithrombotics/antiplatelets
CPT/HCPCS: 36415; 36416; 36430; 71045; 80048; 80053; 80162; 82805; 83735; 85025; 85027; 85610; 85730; 86850; 86900; 86901; 93005; 93010; 93798; 94002; 97139; C1713; C1751; J0282; J0360; J0690; J1100; J1160; J1642; J1644; J1650; J1815; J1885; J2001; J2150; J2250; J2370; J2405; J2440; J2704; J2720; J3010; J3370; J3475; J3480; J3490; J7050; J7070; J7120; P9016; P9035; P9045; S0017; S0028; U0002; U0003; U0005

== ENCOUNTER 2023-01-03 08:08 | Day surgery (SDC) | payer MEDICARE ==
[2022-12-25 14:53] VITALS: BMI 30.4
[2023-01-03] MEDS ORDERED: fentaNYL PF 100 MCG/2 ML SYRINGE ONE (09:14)
[2023-01-03] MEDS ORDERED: Phenylephrine 10 MG/ML VIAL ONE (09:27)
[2023-01-03] MEDS ORDERED: Vasopressin 20 UNITS/ML VIAL ONE (09:27)
[2023-01-03] MEDS ORDERED: LevoFLOXacin 500 mg/D5W 100 ML BAG ONE (09:32)
== END 2023-01-03 09:55 | disposition home or self-care (01) ==
LOC: SDC 08:08
PROVIDERS: ATTEND Urology
DX: N20.0 Calculus of kidney (principal); E11.51 Type 2 diabetes mellitus with diabetic peripheral angiopathy without gangrene; R82.992 Hyperoxaluria; M10.9 Gout, unspecified; I10 Essential (primary) hypertension; I25.10 Atherosclerotic heart disease of native coronary artery without angina pectoris; N28.9 Disorder of kidney and ureter, unspecified; Z79.02 Long term (current) use of antithrombotics/antiplatelets; Z79.82 Long term (current) use of aspirin; Z79.899 Other long term (current) drug therapy; Z87.891 Personal history of nicotine dependence; Z88.8 Allergy status to other drugs, medicaments and biological substances; Z79.85 Long-term (current) use of injectable non-insulin antidiabetic drugs; Z53.9 Procedure and treatment not carried out, unspecified reason
CPT/HCPCS: 36416; J1956; J2370

== ENCOUNTER 2023-01-07 09:15 | Day surgery (SDC) | payer MEDICARE ==
[2023-01-07] MEDS ORDERED: Ondansetron PF 4 MG/2 ML Vial ONE ×2 (09:42→15:30)
[2023-01-07] MEDS ORDERED: Morphine 4 MG/ML VIAL ONE (09:42)
[2023-01-07 10:08] LABS: #Eosinphils 0.1 thou/uL (0.0-0.7); #Monocytes 1.1 thou/uL (0.11-0.59); %Basophils 0.2 % (0.0-1.0); %Eosinophils 1.1 % (0.0-10.0); %Lymphocytes 8.2 % (21.0-51.0); %Monocytes 11.8 % (0.0-10.0); %Neutrophils 78.4 % (42.0-75.0); Hematocrit 44.3 % (42.0-52.0); Hemoglobin 15.1 g/dL (14.0-18.0); Mean Corpuscular HGB CONC 34.1 g/dL (32.0-36.0); Mean Corpuscular Volume 87.9 fl (78.0-98.0); Mean Platelet Volume 9.3 fL (7.4-10.4); Platelet Count 212 10x3/uL (130-400); RBC Distribution Width 12.7 % (11.5-14.5); Red Blood Cell (RBC) Count 5.04 mill/uL (4.70-6.10); White Blood Cell (WBC) Count 8.9 10x3/uL (4.8-10.8)
[2023-01-07 10:30] LABS: ALT (SGPT) 17 U/L (8-55); AST (SGOT) 16 U/L (5-34); Albumin 4.9 g/dL (3.4-4.8); Alkaline Phosphatase 48 U/L (40-110); Anion Gap 14 mmol/L (10-20); BUN (Urea Nitrogen) 29 mg/dL (8.4-25.7); Bilirubin, Total 0.7 mg/dL (0.2-1.2); Calc. Creatinine Clearance 0 mL/min (70-130); Calcium 9.8 mg/dL (7.8-10.44); Carbon Dioxide 23 mmol/L (23-31); Chloride 103 mmol/L (98-107); Estimated GFR 47; Globulin 2.9 g/dL (2.4-3.5); Glucose 147 mg/dL (80-115); Protein, Total 7.8 g/dL (5.8-8.1); Sodium 136 mmol/L (136-145)
[2023-01-07 11:21] LABS: Bacteria/HPF None Seen HPF (None Seen); Bilirubin Negative (Negative); Blood, Urine 1+ (Negative); CAUTI Indications for Culture Pelvic or flank pain; Clarity Clear (Clear); Glucose, Urine (Dipstick) Normal (Negative); Ketone, Urine Negative (Negative); Leukocyte 25 Leu/uL (Negative); Nitrite Negative (Negative); Protein, Urine (Dipstick) Negative (Neg-Trace); RBC/HPF 0-3 HPF (0-3); Squamous Epithelial None Seen HPF (0-3); Urobilinogen Normal mg/dL (Less than 2); pH, Urine 5.5 (5.0-9.0)
[2023-01-07 11:23] LABS: Urine Culture Reflex No No
[2023-01-07] MEDS ORDERED: HYDROmorphone 0.5 MG/0.5 ML SYRINGE ONE (12:25)
[2023-01-07] MEDS ORDERED: LevoFLOXacin 500 mg/D5W 100 ML BAG ONE (15:12)
[2023-01-07] MEDS ORDERED: fentaNYL PF 100 MCG/2 ML SYRINGE ONE (15:19)
[2023-01-07] MEDS ORDERED: Lidocaine 1% PF 5 ML VIAL ONE (15:30)
[2023-01-07] MEDS ORDERED: ePHEDrine Sulfate 50 MG/10 ML VIAL ONE (15:30)
[2023-01-07] MEDS ORDERED: diphenhydrAMINE 50 MG/ML VIAL ONE (15:30)
[2023-01-07] MEDS ORDERED: PROPOFOL 200 MG/20 ML VIAL ONE (15:30)
== END 2023-01-07 17:45 | disposition home or self-care (01) ==
LOC: ERS 09:15 → SDC/OP 14:48
PROVIDERS: ATTEND Urology
PROC: 0T768DZ Dilation of Right Ureter with Intraluminal Device, Via Natural or Artificial Opening Endoscopic (ICD-10-PCS; principal; 2023-01-07)
DX: N20.2 Calculus of kidney with calculus of ureter (principal); Z79.899 Other long term (current) drug therapy; Z79.4 Long term (current) use of insulin; Z79.02 Long term (current) use of antithrombotics/antiplatelets
CPT/HCPCS: 52332; 74176; 74420; 80053; 81001; 85025; 93005; C1769; C2617; 96361; 96374; 96375; J1170; J1200; J1956; J2270; J2405; J2704

== ENCOUNTER 2023-01-28 10:44 | Outpatient (CLI) | payer MEDICARE ==
[2023-01-28 14:36] LABS: Hematocrit 43.8 % (38.8-50.0); Hemoglobin 14.3 g/dL (13.5-17.5); Mean Corpuscular HGB CONC 32.6 g/dL (32.0-36.0); Mean Corpuscular Hemoglobin 29.1 pg (27.0-33.0); Mean Platelet Volume 10.1 fl (7.4-10.4); Platelet Count 284 10x3/uL (150-450); Red Blood Cell (RBC) Count 4.92 10x6/uL (4.32-5.72)
[2023-01-28 14:54] LABS: Bilirubin Neg (Negative); Blood, Urine 250 (Negative); Clarity Cloudy (Clear); Glucose, Urine (Dipstick) >=1000 mg/dL (Negative); Ketone, Urine Negative (Negative); Leukocyte 100 (Negative); Nitrite Negative (Negative); Protein, Urine (Dipstick) 100 mg/dl (Neg-Trace); Specific Gravity, Urine 1.015 (1.005-1.030); Urobilinogen Normal mg/dL (Less than 2)
[2023-01-28 15:09] LABS: Bacteria/HPF 1+ HPF (None Seen); RBC/HPF Greater than 50 HPF (0-3); Renal Epithelial 0-3 HPF (None Seen); Squamous Epithelial None Seen HPF (0-3)
[2023-01-28 15:31] LABS: PTT 26.2 sec (22.0-33.0); Prothrombin Time 10.7 sec (9.5-12.1)
[2023-01-28 15:47] LABS: Anion Gap 19 mmol/L (10-20); BUN (Urea Nitrogen) 18 mg/dL (8.4-25.7); Calc. Creatinine Clearance 0 mL/min (70-130); Calcium 9.3 mg/dL (7.8-10.44); Carbon Dioxide 21 mmol/L (23-31); Chloride 105 mmol/L (98-107); Estimated GFR 72; Glucose 129 mg/dL (80-115); Potassium 4.9 mmol/L (3.5-5.1); Sodium 140 mmol/L (136-145)
== END 2023-01-28 10:45 | disposition home or self-care (01) ==
LOC: LABBT 10:44
PROVIDERS: ATTEND Urology
DX: Z01.812 Encounter for preprocedural laboratory examination (principal); N20.0 Calculus of kidney; I25.10 Atherosclerotic heart disease of native coronary artery without angina pectoris; E11.51 Type 2 diabetes mellitus with diabetic peripheral angiopathy without gangrene
CPT/HCPCS: 80048; 81001; 85027; 85610; 85730; 87086

== ENCOUNTER 2023-02-06 10:07 | Day surgery (SDC) | payer MEDICARE ==
[2023-02-06] MEDS ORDERED: LevoFLOXacin 500 mg/D5W 100 ML BAG ONE (12:41)
[2023-02-06] MEDS ORDERED: fentaNYL PF 100 MCG/2 ML SYRINGE ONE (12:52)
[2023-02-06] MEDS ORDERED: Phenylephrine 40 MG/NS 250 ML 250 ML ONE (12:52)
[2023-02-06] MEDS ORDERED: PROPOFOL 200 MG/20 ML VIAL ONE (12:59)
[2023-02-06] MEDS ORDERED: Glycopyrrolate 0.2 MG/ML 5 ML SYRINGE ONE (12:59)
[2023-02-06] MEDS ORDERED: Ondansetron PF 4 MG/2 ML Vial ONE (12:59)
[2023-02-06] MEDS ORDERED: NEOSTIGMINE 3 MG/3 ML SYR 3 MG/3 ML SYRINGE ONE (12:59)
[2023-02-06] MEDS ORDERED: Rocuronium Bromide 10 MG/ML (10ML VIAL) ONE (12:59)
[2023-02-06] MEDS ORDERED: Lidocaine 1% PF 5 ML VIAL ONE (12:59)
[2023-02-06] MEDS ORDERED: Phenazopyridine HCl 100 MG TAB ONE ×2 (14:32→14:35)
[2023-02-06] MEDS ORDERED: Oxybutynin 5 MG TAB ONE (14:33)
== END 2023-02-06 16:30 | disposition home or self-care (01) ==
LOC: SDC 10:07
PROVIDERS: ATTEND Urology
PROC: 0TC68ZZ Extirpation of Matter from Right Ureter, Via Natural or Artificial Opening Endoscopic (ICD-10-PCS; principal; 2023-02-06)
PROC: 0T768DZ Dilation of Right Ureter with Intraluminal Device, Via Natural or Artificial Opening Endoscopic (ICD-10-PCS; 2023-02-06)
DX: N20.0 Calculus of kidney (principal); N13.2 Hydronephrosis with renal and ureteral calculous obstruction; I12.9 Hypertensive chronic kidney disease with stage 1 through stage 4 chronic kidney disease, or unspecified chronic kidney disease; N18.9 Chronic kidney disease, unspecified; I25.10 Atherosclerotic heart disease of native coronary artery without angina pectoris; M10.9 Gout, unspecified; E78.5 Hyperlipidemia, unspecified; E11.9 Type 2 diabetes mellitus without complications; I25.2 Old myocardial infarction; Z79.899 Other long term (current) drug therapy; Z79.02 Long term (current) use of antithrombotics/antiplatelets; Z79.4 Long term (current) use of insulin
CPT/HCPCS: 52356; 82365; 82962; C1747; C1769; C2617; 36416; 88300; J1956; J2405; J2704

== ENCOUNTER 2023-10-06 13:53 | Emergency (ER) | payer MEDICARE ==
[2023-10-06 14:54] LABS: #Basophils Less than 0.03 10x3/uL (0.0-0.2); %Basophils 0.2 % (0.0-1.0); %Eosinophils 1.6 % (0.0-10.0); %Lymphocytes 8.4 % (21.0-51.0); %Monocytes 9.7 % (0.0-10.0); %Neutrophils 79.7 % (42.0-75.0); Hematocrit 47.7 % (42.0-52.0); Hemoglobin 15.9 g/dL (14.0-18.0); Mean Corpuscular HGB CONC 33.3 g/dL (32.0-36.0); Mean Corpuscular Hemoglobin 30.2 pg (27.0-31.0); Mean Corpuscular Volume 90.7 fL (78.0-98.0); Mean Platelet Volume 9.5 fL (7.4-10.4); Platelet Count 210 10x3/uL (130-400); RBC Distribution Width 13.4 % (11.5-14.5); Red Blood Cell (RBC) Count 5.26 mill/uL (4.70-6.10)
[2023-10-06 15:10] LABS: ALT (SGPT) 20 U/L (8-55); AST (SGOT) 17 U/L (5-34); Albumin 4.4 g/dL (3.4-4.8); Alkaline Phosphatase 50 U/L (40-110); Anion Gap 14 mmol/L (10-20); BUN (Urea Nitrogen) 18 mg/dL (8.4-25.7); Bilirubin, Total 0.8 mg/dL (0.2-1.2); Calc. Creatinine Clearance 0 mL/min (70-130); Calcium 10.2 mg/dL (7.8-10.44); Carbon Dioxide 23 mmol/L (23-31); Chloride 104 mmol/L (98-107); Estimated GFR 55; Globulin 3.2 g/dL (2.4-3.5); Glucose 183 mg/dL (80-115); Potassium 4.4 mmol/L (3.5-5.1); Protein, Total 7.6 g/dL (5.8-8.1); Sodium 137 mmol/L (136-145)
[2023-10-06] MEDS ORDERED: Ketorolac Tromethamine 30 MG (1 mL) VIAL ONE (15:38)
[2023-10-06] MEDS ORDERED: Morphine 4 MG/ML VIAL ONE (15:38)
[2023-10-06] MEDS ORDERED: Ondansetron PF 4 MG/2 ML Vial ONE (15:38)
[2023-10-06 17:03] LABS: Bacteria/HPF None Seen HPF (None Seen); Bilirubin Negative (Negative); Blood, Urine 3+ (Negative); CAUTI Indications for Culture Pelvic or flank pain; Clarity Clear (Clear); Glucose, Urine (Dipstick) Greater than 1000 mg/dL (Negative); Ketone, Urine Negative (Negative); Leukocyte Negative Leu/uL (Negative); Nitrite Negative (Negative); Protein, Urine (Dipstick) Negative (Neg-Trace); RBC/HPF Greater than 50 HPF (0-3); Specific Gravity, Urine 1.026 (1.002-1.036); Squamous Epithelial None Seen HPF (0-3); Urobilinogen Normal mg/dL (Less than 2); WBC/HPF None Seen HPF (0-3); pH, Urine 5.5 (5.0-9.0)
[2023-10-06 17:07] LABS: Urine Culture Reflex No No
== END 2023-10-06 17:45 | disposition home or self-care (01) ==
LOC: ERS 13:53
DX: N13.2 Hydronephrosis with renal and ureteral calculous obstruction (principal); I10 Essential (primary) hypertension; E11.9 Type 2 diabetes mellitus without complications; I25.10 Atherosclerotic heart disease of native coronary artery without angina pectoris; Z79.82 Long term (current) use of aspirin; Z79.899 Other long term (current) drug therapy; Z79.4 Long term (current) use of insulin; Z79.85 Long-term (current) use of injectable non-insulin antidiabetic drugs
CPT/HCPCS: 74176; 80053; 81001; 85025; J1885; J2270; J2405; 36415; 96361; 96374; 96375

== ENCOUNTER 2023-10-09 14:02 | Outpatient (CLI) | payer MEDICARE | END 2023-10-09 14:03 | disposition home or self-care (01) | LOC: LABBT 14:02 | PROVIDERS: ATTEND Urology | DX: Z01.810 Encounter for preprocedural cardiovascular examination (principal); N20.2 Calculus of kidney with calculus of ureter | CPT/HCPCS: 93005; 93010 ==

== ENCOUNTER 2023-10-16 08:06 | Day surgery (SDC) | payer MEDICARE ==
[2023-10-09 14:24] VITALS: BMI 30.4
[2023-10-16] MEDS ORDERED: fentaNYL 50 mcg/mL 1 mL Vial ONE ×2 (09:59→12:32)
[2023-10-16] MEDS ORDERED: Ondansetron PF 4 MG/2 ML Vial ONE (09:59)
[2023-10-16] MEDS ORDERED: Dexamethasone 20 MG/5 ML VIAL ONE (09:59)
[2023-10-16] MEDS ORDERED: fentaNYL PF 100 MCG/2 ML SYRINGE ONE (09:59)
[2023-10-16] MEDS ORDERED: PROPOFOL 20 ML ONE (09:59)
[2023-10-16] MEDS ORDERED: Lidocaine 1% PF 5 ML VIAL ONE (09:59)
[2023-10-16] MEDS ORDERED: LevoFLOXacin D5W 500 mg (100 mL) BAG ONE (10:06)
[2023-10-16] MEDS ORDERED: Rocuronium Bromide 10 MG/ML (10ML VIAL) ONE (10:20)
[2023-10-16] MEDS ORDERED: SUGAMMADEX SODIUM 200 MG/2 ML VIAL ONE (10:38)
[2023-10-16] MEDS ORDERED: PHENYLEPHRINE-NS 100 MCG/ML 10 ML SYRINGE ONE (10:46)
[2023-10-16] MEDS ORDERED: Phenazopyridine HCl 100 MG TAB ONE (12:31)
[2023-10-16] MEDS ORDERED: Oxybutynin 5 MG TAB ONE (12:31)
[2023-10-25 22:13] LABS: CA Oxalate Monohydrate 100 % (.); Color Brown (.); Stone Weight 760 mg (.)
== END 2023-10-16 15:14 | disposition home or self-care (01) ==
LOC: SDC 08:06
PROVIDERS: ATTEND Urology
PROC: 0TC78ZZ Extirpation of Matter from Left Ureter, Via Natural or Artificial Opening Endoscopic (ICD-10-PCS; principal; 2023-10-16)
PROC: 0T778DZ Dilation of Left Ureter with Intraluminal Device, Via Natural or Artificial Opening Endoscopic (ICD-10-PCS; 2023-10-16)
DX: N20.2 Calculus of kidney with calculus of ureter (principal); I25.10 Atherosclerotic heart disease of native coronary artery without angina pectoris; E11.22 Type 2 diabetes mellitus with diabetic chronic kidney disease; I12.9 Hypertensive chronic kidney disease with stage 1 through stage 4 chronic kidney disease, or unspecified chronic kidney disease; N18.9 Chronic kidney disease, unspecified; M10.9 Gout, unspecified; I25.2 Old myocardial infarction; Z87.891 Personal history of nicotine dependence; Z79.899 Other long term (current) drug therapy
CPT/HCPCS: 52356; 74420; 82365; 82962; C1713; C1747; C1769; C2617; J1100; J1956; J2405; J2704; J3010; 36416; 88300

== ENCOUNTER 2024-02-03 11:53 | Outpatient (CLI) | payer MEDICARE | END 2024-02-03 11:54 | disposition home or self-care (01) | LOC: BICULT 11:53 | PROVIDERS: ATTEND Urology | DX: N20.0 Calculus of kidney (principal) | CPT/HCPCS: 76770 ==